=== PATIENT | female | born 1950 | race African-American/Black ===

== ENCOUNTER 2019-03-31 21:25 | Emergency (ER) | payer MEDICARE, OTHER ==
[~2019-03-31] VITALS: Ht 152.4 cm; Wt 69.1 kg
[2019-03-31 21:35] VITALS: TEMP 97
[2019-03-31] MEDS ORDERED: PRINIVIL40 MG PO (21:50)
[2019-03-31] MEDS ORDERED: GLUCOPHAGE500 MG/TAB PO (21:50)
[2019-03-31] MEDS ORDERED: ACTOS30 MG PO (21:51)
[2019-03-31] MEDS ORDERED: JARDIANCE25 PO (21:52)
[2019-03-31] MEDS ORDERED: ZOCOR 40MG40 MG PO (21:53)
[2019-03-31] MEDS ORDERED: ASPIRIN E.C. 8181 MG PO (21:53)
[2019-03-31 22:01] LABS: COLLECTION METHOD CLEAN CATCH
[2019-03-31 22:10] LABS: PH 6 (5-8); SQUAMOUS EPITHELIAL 0-2 /hpf; URINE APPEARANCE Clear; URINE BACTERIA None Seen /hpf; URINE BILIRUBIN Negative (NEGATIVE); URINE BLOOD 1+ (NEGATIVE); URINE COLOR Colorless; URINE GLUCOSE 2+ (NEGATIVE); URINE KETONE Negative (NEGATIVE); URINE LEUKOCYTE ESTERASE Negative (NEGATIVE); URINE NITRATE Negative (NEGATIVE); URINE PROTEIN(semi-quant) Negative (NEGATIVE); URINE RBC 0-2 /hpf; URINE UROBILINOGEN Negative (NEGATIVE)
[2019-03-31 23:18] LABS: BASO % 0.3 % (0.0-2.0); EOS # 0.1 (0.0-0.7); EOS % 1.2 % (0-4.0); GRAN # 5.3 (1.4-6.5); GRAN % 76.7 % (42.2-75.2); HEMATOCRIT 46.7 % (37.0-47.0); HEMOGLOBIN 15.3 g/dl (12.5-16.0); LYMPH # 1.1 (1.2-3.4); LYMPH % 16.3 % (20.0-51.0); MEAN CELL VOLUME 100 fl (80.0-100.0); MEAN CORPUSCULAR HEMOGLOBIN 33 pg (27.0-31.0); MEAN CORPUSCULAR HGB CONC 33 g/dl (33.0-37.0); MEAN PLATELET VOLUME 9.6 fl (7.4-10.4); MONO # 0.3 (0.1-0.6); MONO % 4.9 % (1.7-9.3); PLATELET COUNT 159 K/mm3 (130-400); RED BLOOD COUNT 4.67 M/mm3 (4.10-5.30); REDCELL DISTRIBUTION WIDTH-CV 13.2 % (11.5-14.5)
[2019-03-31 23:20] LABS: ALANINE AMINOTRANSFERASE 44 U/L (9-52); ALBUMIN 4.4 gm/dL (3.5-5.0); ALKALINE PHOSPHATASE 79 U/L (50-136); ANION GAP 13 mmol/L (7-16); AST,SGOT 58 U/L (15-37); BILIRUBIN,TOTAL 0.5 mg/dL (0.0-1.0); BLOOD UREA NITROGEN 20 mg/dL (7-17); CALCIUM 9.3 mg/dL (8.4-10.2); CARBON DIOXIDE 24 mmol/L (22-30); CHLORIDE 106 mmol/L (98-107); CREATININE, serum 0.83 (0.52-1.25); GLUCOSE 196 mg/dL (74-106); LIPASE 91 U/L (23-300); SODIUM 142 mmol/L (137-145); TOTAL PROTEIN 8.2 gm/dL (6.4-8.2)
[2019-03-31 23:22] LABS: C-REACTIVE PROTEIN < 0.5 mg/dL (0.0-0.9)
[2019-03-31 23:33] LABS: TROPONIN-I < 0.012 ng/mL (0.000-0.035)
[2019-04-01] MEDS ORDERED: NORCO 325 MG-51 TAB PO (02:13)
[2019-04-01] MEDS ORDERED: FLEXERIL 1010 MG/TAB PO (02:13)
[2019-04-01] MEDS ORDERED: MOBIC 7.5MG7.5 MG PO (02:13)
[2019-04-01 02:25] VITALS: BP 172/88; PULSE 87
== END 2019-04-01 02:30 | disposition home or self-care (01) ==
LOC: COL.ER 21:25
PROVIDERS: Emergency Medicine
DX: M54.5 Low back pain (principal); R10.0 Acute abdomen; E11.9 Type 2 diabetes mellitus without complications; I10 Essential (primary) hypertension; E78.5 Hyperlipidemia, unspecified; Z90.49 Acquired absence of other specified parts of digestive tract
CPT/HCPCS: Q9967